=== PATIENT | male | born 1980 ===

== ENCOUNTER 2017-09-26 10:18 | Inpatient (IN) | payer OTHER ==
[2017-09-26] MEDS ORDERED: Sodium Chloride 0.9% 1,000 ML IV ONE (10:44)
[2017-09-26] MEDS ORDERED: Sodium Chloride 0.9% 1,000 ML ONE (11:03)
--- NOTE | 2017-09-26 11:03 | C.PDOC ---
History Of Present Illness 37 yo male c/o intermittent abdominal pain for several months. Pt notes he had an appendectomy on 09/14/[address] Guzmán who he followed up with on 09/20/17. Pt had the stapled removed at that time and was told to come to ED for further evaluation of his umbilical hernia. Denies any pain, vomiting, fever, diarrhea or symptoms. Time Seen by Provider: 09/26/17 10:39 Chief Complaint (Nursing): Medical Clearance History Per: Patient History/Exam Limitations: no limitations Onset/Duration Of Symptoms: Intermittent Episodes Current Symptoms Are (Timing): Still Present Past Medical History Vital Signs: Last Vital Signs Temp 99.2 F 09/26/17 10:34 Pulse 95 H 09/26/17 10:34 Resp 18 09/26/17 10:34 BP 137/92 H 09/26/17 10:34 Pulse Ox 97 09/26/17 10:34 - Medical History PMH: Hypothyroidism Surgical History: Appendectomy Family History: States: Unknown Family Hx - Social History Hx Alcohol Use: Yes Hx Substance Use: No - Immunization History Hx Tetanus Toxoid Vaccination: No Hx Influenza Vaccination: No Hx Pneumococcal Vaccination: No Review Of Systems Except As Marked, All Systems Reviewed And Found Negative. Gastrointestinal: Positive for: Abdominal Pain Physical Exam - Physical Exam Appears: Well, Non-toxic, No Acute Distress Skin: Warm, Dry Head: Atraumatic, Normacephalic Eye(s): bilateral: Normal Inspection, EOMI Nose: Normal Oral Mucosa: Moist Neck: Normal, Normal ROM, Supple Chest: Symmetrical Cardiovascular: Rhythm Regular Respiratory: Normal Breath Sounds, No Accessory Muscle Use Gastrointestinal/Abdominal: Soft, No Tenderness, Hernia ((+) umbilical), Other ( (+) healing RLQ incision with yoli intact, no erythema) Back: Normal Inspection Extremity: Normal ROM Neurological/Psych: Oriented x3, Normal Speech ED Course And Treatment O2 Sat by Pulse Oximetry: 97 Progress Note: CAse discussed with Dr Guzmán who instructs admission for hernia repair. Disposition - Disposition Disposition: HOSPITALIZED Disposition Time: 11:05 Condition: STABLE - Clinical Impression Clinical Impression: Incarcerated umbilical hernia
[2017-09-26 11:35] LABS: BASO % 0.6 % (0.0-2.0); EOS # 0.3 K/uL (0.0-0.7); EOS % 3.3 % (0.0-4.0); HEMOGLOBIN 14.8 g/dL (12.0-18.0); LYMPH # 2.7 K/uL (1.0-4.3); LYMPH % 32.9 % (20.0-40.0); MEAN CELL VOLUME 88.3 fL (80.0-94.0); MEAN CORPUSCULAR HGB CONC 33.9 g/dL (33.0-37.0); MEAN PLATELET VOLUME 6.8 fL (7.2-11.7); MONO # 0.4 K/uL (0.0-0.8); MONO % 5.4 % (0.0-10.0); NEUT # 4.7 K/uL (1.8-7.0); NEUT % 57.8 % (50.0-75.0); NRBC % 0.1 % (0.0-2.0); RBC 4.92 Mil/uL (4.40-5.90); RED CELL DISTRIBUTION WIDTH 13.9 % (11.5-14.5); WHITE BLOOD COUNT 8.2 K/uL (4.8-10.8)
[2017-09-26 11:44] LABS: PROTHROMBIN TIME 11.1 SECONDS (9.7-12.2)
[2017-09-26 12:09] LABS: ALB/GLOB RATIO 1.1 (1.0-2.1); ALBUMIN 4.4 g/dL (3.5-5.0); ALT/SGPT 31 U/L (21-72); AST/SGOT 27 U/L (17-59); BLOOD UREA NITROGEN 11 mg/dL (9-20); CALCIUM 9.5 mg/dl (8.6-10.4); GFR AFRICAN-AMERICAN > 60; GFR NON-AFRICAN AMERICAN > 60
[2017-09-26] MEDS ORDERED: Propofol 10 mg/ml Inj (20 ML) ONE (12:30)
[2017-09-26] MEDS ORDERED: Midazolam 2 MG/2 ML VIAL ONE (12:30)
[2017-09-26] MEDS ORDERED: ceFAZolin IV 2 gm in Dextrose 2 GM/50 ML BAG IVPB ONE (12:50)
[2017-09-26] MEDS ORDERED: Bupivacaine 0.25% 20 ML INJ IJ ONE (12:50)
[2017-09-26] MEDS ORDERED: Rocuronium 10 mg/ml (5 ml) ONE (13:12)
[2017-09-26] MEDS ORDERED: Oxycodone/Acetaminophen 5/325 mg Tab PO PRN (13:16)
[2017-09-26] MEDS ORDERED: Neostigmine Methylsulfate 3mg/3ml Syringe IV ONE (13:23)
[2017-09-26] MEDS ORDERED: Dextrose 5%/0.45% NS 1,000 ML IV SCH (13:30)
[2017-09-26] MEDS: HYDROmorphone 0.5 mg/0.5 ml ISec IVP PRN ×2 (13:45→14:00)
[2017-09-26] MEDS ORDERED: HYDROmorphone 0.5 mg/0.5 ml ISec ONE (14:23)
--- NOTE | 2017-09-26 20:50 | CP.PCM.CON ---
Past Patient History - Past Social History Smoking Status: Never Smoked - ENDOCRINE/METABOLIC Hx Hypothyroidism: Yes - MUSCULOSKELETAL/RHEUMATOLOGICAL Hx Falls: No - PSYCHIATRIC Hx Substance Use: No - SURGICAL HISTORY Hx Appendectomy: Yes Hx Herniorrhaphy: Yes (umbilical hernia repair,lysis of adhesions 09-26-17) - ANESTHESIA Hx Anesthesia: Yes Hx Anesthesia Reactions: No Hx Malignant Hyperthermia: No Meds Allergies/Adverse Reactions: Allergies Allergy/AdvReac Type Severity Reaction Status Date / Time No Known Allergies Allergy Verified 09/26/17 10:37 - Medications Medications: Current Medications Docusate Sodium (Colace) 100 mg PO BID JOSE Last Admin: 09/26/17 17:51 Dose: 100 mg Dextrose/Sodium Chloride (Dextrose 5%/0.45% Ns 1000 Ml) 1,000 mls @ 60 mls/hr IV .[id number] [facility] Ondansetron HCl (Zofran Inj) 4 mg IVP Q6 PRN PRN Reason: Nausea/Vomiting Oxycodone/Acetaminophen (Percocet 5/325 Mg Tab) 2 tab PO Q4H PRN PRN Reason: pain Stop: 09/29/17 13:17 Pantoprazole Sodium (Protonix Inj) 40 mg IVP DAILY [facility] Pneumococcal Polyvalent Vaccine (Pneumovax 23 Vaccine) 0.5 ml IM .ONCE ONE Stop: 09/27/17 10:01 Results - Vital Signs Recent Vital Signs: Last Vital Signs Temp 98 F 09/26/17 15:55 Pulse 100 H 09/26/17 15:55 Resp 18 09/26/17 15:55 BP 135/89 09/26/17 15:55 Pulse Ox 97 09/26/17 15:55 - Labs Result Diagrams: 09/26/17 11:25 09/26/17 11:25 Labs: Laboratory Results - last 24 hr 09/26/17 09/26/17 09/26/17 11:25 11:25 11:25 WBC 8.2 RBC 4.92 Hgb 14.8 Hct 43.5 MCV 88.3 MCH 30.0 MCHC 33.9 RDW 13.9 Plt Count 379 MPV 6.8 L Neut % (Auto) 57.8 Lymph % (Auto) 32.9 Menard % (Auto) 5.4 Eos % (Auto) 3.3 Baso % (Auto) 0.6 Neut # (Auto) 4.7 Lymph # (Auto) 2.7 Menard # (Auto) 0.4 Eos # (Auto) 0.3 Baso # (Auto) 0.0 PT 11.1 INR 1.0 APTT 39 H Sodium 140 Potassium 4.3 Chloride 102 Carbon Dioxide 29 Anion Gap 14 BUN 11 Creatinine 0.8 Est GFR ( Amer) > 60 Est GFR (Non-Af Amer) > 60 Random Glucose 95 Calcium 9.5 Total Bilirubin 0.5 AST 27 ALT 31 Alkaline Phosphatase 137 H Total Protein 8.2 Albumin 4.4 Globulin 3.9 Albumin/Globulin Ratio 1.1 Blood Type Antibody Screen 09/26/17 11:25 WBC RBC Hgb Hct MCV MCH MCHC RDW Plt Count MPV Neut % (Auto) Lymph % (Auto) Menard % (Auto) Eos % (Auto) Baso % (Auto) Neut # (Auto) Lymph # (Auto) Menard # (Auto) Eos # (Auto) Baso # (Auto) PT INR APTT Sodium Potassium Chloride Carbon Dioxide Anion Gap BUN Creatinine Est GFR ( Amer) Est GFR (Non-Af Amer) Random Glucose Calcium Total Bilirubin AST ALT Alkaline Phosphatase Total Protein Albumin Globulin Albumin/Globulin Ratio Blood Type O POSITIVE Antibody Screen Negative
[2017-09-26 21:56] VITALS: RESP 20
--- NOTE | 2017-09-26 21:59 | OP ---
Copied To: Ravinder Guzmán MD Attending MD: Ravinder Guzmán MD PROCEDURE DATE: 09/26/2017 PREOPERATIVE DIAGNOSIS: Incarcerated umbilical hernia. POSTOPERATIVE DIAGNOSES: Incarcerated umbilical hernia with multiple intra-abdominal adhesions. PROCEDURE PERFORMED: Repair of incarcerated umbilical hernia with lysis of adhesions. SURGEON: Ravinder Guzmán MD ANESTHESIA: General. BLOOD LOSS: 30 mL. POSTOPERATIVE CONDITION: Stable. INDICATIONS FOR SURGERY: This is a 37-year-old male, status post appendectomy three weeks ago. At that time, he was noted to have a large umbilical hernia and closure was planned. He was readmitted to the hospital today for repair of his umbilical hernia. DESCRIPTION OF PROCEDURE: The patient was taken to the operating room. General anesthesia was administered. The abdomen was prepped and draped. A transverse incision was made large umbilical hernia. The large hernia sac was encountered. It was carefully dissected free down to its base where the sac was carefully removed exposing the both small bowel and omentum. Adhesions were taken down sharply both from within the sac and also from the abdominal wall. Small serosal tears of the bowel along with the transverse colon were repaired with a silk. A larger blood vessel was repaired. After the bowel was inspected and found to be without further injury, we reduced back into the abdomen, and a primary closure was performed with multiple interrupted 0 Prolene sutures. The subcutaneous space revealed a large space, so advancement flap closure was performed by widely mobilizing using multiple layers of Monocryl, subcuticular Monocryl, and skin clips. The patient tolerated the procedure well and returned to recovery room in stable condition. Ravinder Guzmán MD
[2017-09-27 00:25] VITALS: O2SAT 95
[2017-09-27 07:51] VITALS: BP 130/92; PULSE 96; TEMP 98.1
--- NOTE | 2017-09-27 08:49 | PN ---
Copied To: Charbel Sanchez MD Attending MD: Charbel Sanchez MD DATE: 09/26/2017 CHIEF COMPLAINT: Abdominal pain. SUBJECTIVE: This is a 37-year-old young male with a history of hyperthyroidism. He developed intermittent abdominal pain on and off for several months. He is status post appendectomy on 09/14/2017 and then later on he was followed up and after discharge from the hospital, the yoli were removed. Patient was doing well and then he had abdominal pain. It was found to be an umbilical hernia and today he was referred to the emergency room, hospitalized and underwent emergency surgery. Patient denies any fever, chills, rigors. He had nausea. No vomiting. He denies any history of polyuria, polydipsia, polyphagia. He denied any history of hematuria or pyuria. He denies any joint pain, hip pain, or leg pain. He denies any . PAST MEDICAL HISTORY: Hyperthyroidism. SOCIAL HISTORY: Social alcohol user. Nonsmoker. CURRENT MEDICATIONS: Methimazole. ALLERGIES: UNKNOWN. PHYSICAL EXAMINATION: GENERAL: A middle aged young male, in no distress denying any pain. VITAL SIGNS: His blood pressure is 137/92, pulse 95, respiratory 18, temperature 99.2. SKIN: No rashes. No purpura. No petechiae. HEENT: Atraumatic and normocephalic. Negative pallor. Negative jaundice. Extraocular movements are intact. NECK: Supple. No JVD. No lymph nodes. No thyromegaly. No carotid bruit. CHEST: Chest wall bilaterally symmetrical , no masses, no deformity. LUNGS: Clear. No rale. No rhonchi. CARDIOVASCULAR: S1 and S2 regular. No noted. ABDOMEN: Postop bowel sounds are present. RECTAL AND PELVIS: Normal. EXTREMITIES: No clubbing, cyanosis, or edema. CENTRAL NERVOUS SYSTEM: Normal. ASSESSMENT: 1. Umbilical hernia incarcerated, status post surgery, post operative day #2. 2. Hyperthyroidism. PLAN: Continue medical management. Monitor patient. Charbel Sanchez MD [facility] # [id number]
[2017-09-27] MEDS: Pneumococcal 23-Valent Vaccine IM ONE ×2 (10:08→10:56)
--- NOTE | 2017-09-27 23:41 | CP.PCM.CON ---
Past Patient History - Past Social History Smoking Status: Never Smoked - ENDOCRINE/METABOLIC Hx Hypothyroidism: Yes - MUSCULOSKELETAL/RHEUMATOLOGICAL Hx Falls: No - PSYCHIATRIC Hx Substance Use: No - SURGICAL HISTORY Hx Appendectomy: Yes Hx Herniorrhaphy: Yes (umbilical hernia repair,lysis of adhesions 09-26-17) - ANESTHESIA Hx Anesthesia: Yes Hx Anesthesia Reactions: No Hx Malignant Hyperthermia: No Meds Allergies/Adverse Reactions: Allergies Allergy/AdvReac Type Severity Reaction Status Date / Time No Known Allergies Allergy Verified 09/26/17 10:37 Results - Vital Signs Recent Vital Signs: Last Vital Signs Temp 98.1 F 09/27/17 07:00 Pulse 96 H 09/27/17 07:00 Resp 20 09/27/17 07:00 BP 130/92 H 09/27/17 07:00 Pulse Ox 95 09/27/17 07:00 - Labs Result Diagrams: 09/26/17 11:25 09/26/17 11:25
--- NOTE | 2017-09-28 11:41 | PN ---
Copied To: Charbel Sanchez MD Attending MD: Charbel Sanchez MD DATE: 09/27/2017 SUBJECTIVE: The patient is status post OR. He is feeling better. No fever. No chills. Blood pressure is down. PHYSICAL EXAMINATION: VITAL SIGNS: BP 130/92, pulse 96, respiratory rate 20, temperature 98.1. LUNGS: Clear. CARDIOVASCULAR: S1, S2 regular. ABDOMEN: Soft. postoperative. ASSESSMENT: 1. Umbilical hernia, status post OR. 2. Hypothyroidism. PLAN: Discharge patient, will follow up outpatient. Charbel Sanchez MD
== END 2017-09-27 12:57 | disposition home or self-care (01) | DRG 336 ==
LOC: C.ER 10:18 → C.9E 10:49 → OBSVTOIN 13:17 → C.6T 14:35
PROVIDERS: ADMIT Surgery; ATTEND Surgery
PROC: 0DNW0ZZ Release Peritoneum, Open Approach (ICD-10-PCS; 2017-09-26)
PROC: 0HX7XZZ Transfer Abdomen Skin, External Approach (ICD-10-PCS; 2017-09-26)
PROC: 0WQF0ZZ Repair Abdominal Wall, Open Approach (ICD-10-PCS; principal; 2017-09-26 11:00)
DX: K42.0 Umbilical hernia with obstruction, without gangrene (principal); S36.439A Laceration of unspecified part of small intestine, initial encounter; S36.531A Laceration of transverse colon, initial encounter; E03.9 Hypothyroidism, unspecified; E05.90 Thyrotoxicosis, unspecified without thyrotoxic crisis or storm; K66.0 Peritoneal adhesions (postprocedural) (postinfection); Y69 Unspecified misadventure during surgical and medical care